=== PATIENT | female | born 1965 | race Caucasian/White ===

== ENCOUNTER → 2017-02-27 | Day surgery (SDC) | payer BC ==
[~2017-02-27] MED LIST: CLARITIN10 M3 DOB; GLUCOPHAGE500 MG PO; MULTIVITAMINS1 EAC3; NYSTATIN15 G2 TOP; PROAIR HFA8.5 GM IN; PROBIOTIC1 EAC1 PO; REPATHA SY140 MG/1 M; TRULICITY1.5 MG/0.5; TUDORZA PRESS400 MCG INH; ZESTRIL40 MG PO
--- NOTE | ~2017-02-27 | OR ---
Unit #: [id number] #: [id number] Patient: LILIYA CASTILLO [id number] [address] [place], [place] [address] [id number] O MR#: [id number] NAME: LILIYA CASTILLO ROOM: Date of Procedure: 02/27/2017 Admission Date: 02/27/2017 Surgeon: John Norton M.D. : 1965 Attending Physician: John Norton M.D. Referring Physician: John Norton M.D. Primary Care Physician: Alexa Wick Aprn OPERATIVE REPORT PRIMARY CARE PHYSICIAN Alexa Wick APRN PREOPERATIVE DIAGNOSES The patient presented with history of dyspepsia. In addition, she also mentions history of change in bowel pattern with increasing diarrhea and occasional constipation. PROCEDURES PERFORMED Upper gastrointestinal endoscopy and biopsy as well as colonoscopy with polypectomy and biopsies. POSTOPERATIVE DIAGNOSES For upper endoscopy: 1. The patient had completely normal examination up to third part of duodenum. A biopsy obtained from the antrum for CLOtest. In addition, biopsies also obtained from deep descending duodenum to look for any evidence of partial villous atrophy or celiac disease. For colonoscopy: 1. Two sessile polyps noted, one each in the cecum and sigmoid colon. These were removed using snare cautery polypectomy. 2. Oprb-pl-[id number] sigmoid and descending colon diverticulosis. 3. Rest of examination up to cecum was normal. The quality of the prep was good. Multiple random colonic biopsies obtained from throughout the colon to rule out microscopic or collagenous colitis. RECOMMENDATIONS 1. The patient being started on Colestid 1 g p.o. b.i.d. She will skip a dose in case of constipation. 2. She is also being started on pantoprazole 40 mg p.o. daily and be followed up in the office in 3 months' time. SEDATION USED MAC. DESCRIPTION OF PROCEDURE Following detailed explanation of potential risks and complications of an upper endoscopy and a colonoscopy, namely perforation, bleeding, and complications related to sedation, the patient was brought to GI lab and laid in the left lateral decubitus position. Lubricated tip of the Olympus video upper endoscope was passed through bite block into the Unit #: [id number] #: [id number] Patient: ANTLE,LILIYA proximal esophagus under direct vision. The entire esophageal mucosa was examined and appeared normal. Z-line was nicely demarcated, there being no esophagitis or hiatus hernia. The scope was then advanced into the gastric cavity and the latter was insufflated. Mucosa of the fundus, body, and antrum examined and appeared unremarkable. Pylorus was intubated with visualization of the normal duodenal bulb and second and third part of the duodenum. Biopsies obtained from the deep descending duodenal folds to look for any evidence of partial villous atrophy or celiac disease. Upon withdrawal and retroflexion, incisura, cardia, and greater curve examined and a biopsy obtained from the antrum for CLOtest. The scope was then withdrawn in the distal esophagus. The entire esophageal mucosa was examined all the way up to pharynx, no additional findings noted. The examination table was then turned by 180 degrees and the patient positioned for a colonoscopy. A digital rectal examination was performed, which was normal. Lubricated tip of the Olympus video colonoscope was inserted through the anus and advanced under direct vision. The scope was advanced and passed up to sigmoid into descending colon. Multiple small to medium-sized diverticula were noted in this area. The scope tip was then navigated all the way up to cecum with visualization of the ileocecal valve and the appendiceal orifice. Preparation was good with good visualization and photodocumentation was obtained. A single sessile polyp was noted in the cecum adjacent to appendiceal orifice. This was about 5 mm in size. It was removed using snare polypectomy. It was retrieved and sent for histology. A second larger polyp about 1 cm in size was seen in the proximal sigmoid colon was also removed using snare cautery polypectomy. Both the polyps were retrieved and sent for histology. No additional polyps noted. Other than the left-sided diverticula, no other abnormalities were found. The patient did not have any hemorrhoids at anal verge. The scope was then withdrawn. The patient returned to recovery area. She tolerated the procedure without any postprocedure complications. Dictated byTalita Carrizales TD: 02/27/2017 23:26 JOB #: [id number] OPERATIVE REPORT Page 1 of 1 X John Norton MD PROCEDURE OPERATIVE NOTE
== END | disposition home or self-care (01) ==
LOC: COPS 13:02
DX: D12.0 Benign neoplasm of cecum (principal); K29.80 Duodenitis without bleeding; K63.5 Polyp of colon; K57.30 Diverticulosis of large intestine without perforation or abscess without bleeding; J44.9 Chronic obstructive pulmonary disease, unspecified; E11.9 Type 2 diabetes mellitus without complications; I10 Essential (primary) hypertension; J45.909 Unspecified asthma, uncomplicated; F17.210 Nicotine dependence, cigarettes, uncomplicated; Z79.51 Long term (current) use of inhaled steroids; Z79.899 Other long term (current) drug therapy; Z79.84 Long term (current) use of oral hypoglycemic drugs; Z90.49 Acquired absence of other specified parts of digestive tract; Z98.890 Other specified postprocedural states
CPT/HCPCS: 82947; 87077; 88305; J2250

== ENCOUNTER → 2017-06-06 | Outpatient (CLI) | payer BC ==
--- NOTE | ~2017-06-06 | NM19 ---
[facility] RADIOLOGY TEXT RESULTS PATIENT: LILIYA CASTILLO LOCATION: [facility] : [birth year] UNIT #: [id number] AGE: [address]: John Norton MD SEX: F ORDER DR: [id number] [facility] [address] [place], [place] [address] [id number] O MR#: [id number] Acc #: [id number] NAME: LILIYA CASTILLO : 1965 SEX: F STUDY DATE/TIME: 06/06/2017 10:08 UNIT: [facility] ROOM: STUDY DESCRIPTION: PR Gastric Emptying Study Attending Physician: John Norton M.D. Referring Physician: John Norton M.D. Ordering Physician: John Norton M.D. Primary Care Physician: Alexa Wick Aprn MEDICAL IMAGING REPORT This report is preliminary unless electronic signature is present EXAM Gastric emptying scan, 06/06/2017. HISTORY Abdominal bloating, dyspepsia, early satiety, gastroesophageal reflux disease, weight loss, alternating diarrhea and constipation, nausea and vomiting. Symptoms began 3 months ago. FINDINGS The patient ingested 543 mcCi of technetium 99m tagged sulfur colloid in eggs. Images of the upper abdomen were obtained for 4 hours. After 1 hour, the stomach was 14% empty and after 2 hours the stomach was 46% empty and after 4 hours the stomach was 86% empty. Normal range is greater than 60% empty after 2 hours of imaging and greater than 90% empty after 4 hours of imaging. IMPRESSION Delayed gastric emptying after 2 hours of imaging and normal gastric emptying after 4 hours of imaging. Dictated by... Phil Whitley M.D. THIS IS AN ELECTRONICALLY VERIFIED REPORT Phil Whitley M.D. at 06/07/2017 8:10 AM ANGEL/zaheer TD: 06/06/2017 20:30 JOB #: [id number] MEDICAL IMAGING REPORT [facility] RADIOLOGY TEXT RESULTS PATIENT: LILIYA CASTILLO LOCATION: [facility] #: [id number] : [birth year] UNIT #: [id number] AGE: [address]: John Norton MD SEX: F ORDER DR: Page 1 of 1 COPY
== END | disposition home or self-care (01) ==
LOC: CNUC 09:18
DX: K21.9 Gastro-esophageal reflux disease without esophagitis (principal); R68.81 Early satiety; R14.0 Abdominal distension (gaseous); K30 Functional dyspepsia
CPT/HCPCS: 78264; A9541